=== PATIENT | female | born 1990 | race Hispanic/Latino ===

== ENCOUNTER 2020-05-20 07:44 | Emergency (ER) | payer MEDICARE, MEDICAID ==
[2020-05-20] MEDS ORDERED: Morphine 4 MG/ML VIAL ONE (08:11)
[2020-05-20 08:31] LABS: #Eosinphils 0.2 thou/uL (0.0-0.7); #Monocytes 1.2 thou/uL (0.11-0.59); #Neutrophils 6.7 thou/uL (1.40-6.50); %Basophils 0.4 % (0.0-1.0); %Eosinophils 1.8 % (0.0-10.0); %Lymphocytes 10.7 % (21.0-51.0); %Neutrophils 74.1 % (42.0-75.0); Hemoglobin 12.3 g/dL (12.0-16.0); Mean Corpuscular Hemoglobin 29.1 pg (27.0-31.0); Mean Corpuscular Volume 91.1 fL (78.0-98.0); Mean Platelet Volume 7.3 fL (7.4-10.4); Platelet Count 314 thou/uL (130-400); RBC Distribution Width 13.9 % (11.5-14.5); Red Blood Cell (RBC) Count 4.21 mill/uL (4.20-5.40)
[2020-05-20 08:55] LABS: ALT (SGPT) 21 U/L (8-55); AST (SGOT) 24 U/L (5-34); Albumin 3.4 g/dL (3.5-5.0); Alkaline Phosphatase 666 U/L (40-110); Anion Gap 18 mmol/L (10-20); BUN (Urea Nitrogen) 43 mg/dL (7.0-18.7); Bilirubin, Total 0.4 mg/dL (0.2-1.2); CK (CPK) 90 U/L (29-168); Calc. Creatinine Clearance 0 mL/min (70-130); Calcium 8.6 mg/dL (7.8-10.44); Carbon Dioxide 31 mmol/L (22-29); Chloride 84 mmol/L (98-107); Globulin 3.6 g/dL (2.4-3.5); Potassium 4.4 mmol/L (3.5-5.1); Sodium 129 mmol/L (136-145)
[2020-05-20 08:57] LABS: Glucose 703 mg/dL (70-105)
--- NOTE | 2020-06-08 13:15 | EKG ---
Test Reason : Blood Pressure : / mmHG Vent. Rate : 103 BPM Atrial Rate : 103 BPM P-R Int : 150 ms QRS Dur : 076 ms QT Int : 380 ms P-R-T Axes : 067 058 080 degrees QTc Int : 497 ms Sinus tachycardia Left atrial enlargement Nonspecific ST abnormality Abnormal ECG Confirmed by LENI RUBI ([id number]), loan expeditor RON WANG ([id number]) on 06/08/2020 1:14:32 PM Referred By: Confirmed By:LENI Loza
== END 2020-05-20 09:50 | disposition home or self-care (01) ==
LOC: ERS 07:44
DX: M79.604 Pain in right leg (principal); E11.65 Type 2 diabetes mellitus with hyperglycemia; F17.210 Nicotine dependence, cigarettes, uncomplicated; I12.0 Hypertensive chronic kidney disease with stage 5 chronic kidney disease or end stage renal disease; N18.6 End stage renal disease; E11.22 Type 2 diabetes mellitus with diabetic chronic kidney disease; Z79.899 Other long term (current) drug therapy
CPT/HCPCS: 36416; 80053; 82550; 85025; 93005; 96374; J2270

== ENCOUNTER 2020-08-29 05:48 | Inpatient (IN) | payer MEDICARE, MEDICAID ==
[2020-08-29 07:13] LABS: #Eosinphils 0.2 thou/uL (0.0-0.7); #Monocytes 0.5 thou/uL (0.11-0.59); #Neutrophils 12.2 thou/uL (1.40-6.50); %Basophils 0.3 % (0.0-1.0); %Eosinophils 1.5 % (0.0-10.0); %Lymphocytes 6.8 % (21.0-51.0); %Monocytes 3.4 % (0.0-10.0); %Neutrophils 88.1 % (42.0-75.0); Hemoglobin 10.7 g/dL (12.0-16.0); Mean Corpuscular HGB CONC 32.3 g/dL (32.0-36.0); Mean Corpuscular Hemoglobin 28.7 pg (27.0-31.0); Mean Corpuscular Volume 88.9 fL (78.0-98.0); Mean Platelet Volume 9.1 fL (7.4-10.4); Platelet Count 153 thou/uL (130-400); RBC Distribution Width 14.8 % (11.5-14.5); Red Blood Cell (RBC) Count 3.74 mill/uL (4.20-5.40); White Blood Cell (WBC) Count 13.9 thou/uL (4.8-10.8)
[2020-08-29 07:39] LABS: ALT (SGPT) 152 U/L (8-55); AST (SGOT) 120 U/L (5-34); Albumin 4.8 g/dL (3.5-5.0); Alkaline Phosphatase 671 U/L (40-110); Anion Gap 24 mmol/L (10-20); BUN (Urea Nitrogen) 73 mg/dL (7.0-18.7); Bilirubin, Total 0.7 mg/dL (0.2-1.2); Calc. Creatinine Clearance 0 mL/min (70-130); Calcium 9.7 mg/dL (7.8-10.44); Carbon Dioxide 25 mmol/L (22-29); Chloride 94 mmol/L (98-107); Globulin 3.9 g/dL (2.4-3.5); Glucose 251 mg/dL (70-105); Potassium 4.5 mmol/L (3.5-5.1); Protein, Total 8.7 g/dL (6.0-8.3); Sodium 138 mmol/L (136-145)
[2020-08-29 09:26] LABS: HBSAg Index 0.16 S/CO (0-0.99); Hep B Surf Ag Non-Reactive S/CO (NonReactive)
[2020-08-29] MEDS ORDERED: HumaLOG 300 UNITS/3 ML VIAL SC PRN (11:18)
[2020-08-29] MEDS ORDERED: Dextrose 50% Abboject 50 ML SYRINGE SLOW IVP PRN (11:18)
[2020-08-29] MEDS ORDERED: Dextrose 5% in Water 1,000 ML IV PRN (11:18)
[2020-08-29] MEDS ORDERED: Ondansetron PF 4 MG/2 ML Vial IVP PRN (11:18)
[2020-08-29] MEDS ORDERED: Ondansetron ODT 4 MG TAB PO PRN (11:18)
[2020-08-29] MEDS ORDERED: Lidocaine 4% Cream 5 GM TUBE w/ Tegaderm TOP SCH (12:00)
[2020-08-29] MEDS ORDERED: hydrALAZINE 20 MG/ML VIAL SLOW IVP PRN (12:12)
[2020-08-29] MEDS ORDERED: Loratadine 10 MG TAB PO PRN (12:54)
[2020-08-29 14:16] VITALS: BMI 24.5
[2020-08-29 14:54] LABS: ALT (SGPT) 170 U/L (8-55); AST (SGOT) 190 U/L (5-34); Albumin 3.5 g/dL (3.5-5.0); Alkaline Phosphatase 554 U/L (40-110); Bilirubin, Direct 0.4 mg/dL (0.1-0.3); Bilirubin, Total 0.7 mg/dL (0.2-1.2); Protein, Total 6.3 g/dL (6.0-8.3)
[2020-08-29 15:11] LABS: HIV (1/2) Antibody/Antigen Non-Reactive (NonReactive); HIV 1/2 INDEX 0.09 S/CO (<1.00); Syphilis Antibody Nonreactive (Nonreactive); Syphilis Antibody Index 0.03 S/CO (<1.00 Non-Reactive)
[2020-08-29] MEDS: Heparin 5,000 UNITS/ML VIAL SC SCH ×2 (15:45→20:25)
[2020-08-29] MEDS: Nicotine 14 MG PATCH TD SCH (15:45)
[2020-08-29] MEDS: Pregabalin 50 MG CAP PO SCH ×2 (15:45→18:48)
[2020-08-29 16:31] LABS: SARS-CoV-2 PCR by NAA Not Detected (NotDetected)
[2020-08-29] MEDS: ALPRAZolam 0.5 MG TAB PO SCH (18:48)
[2020-08-29] MEDS: Losartan 25 MG TAB PO SCH (18:48)
[2020-08-29] MEDS: Sevelamer Carbonate 800 MG TAB PO SCH (18:49)
[2020-08-29 20:11] LABS: BHCG - Serum Negative (NEGATIVE); Pregs Control Background? CLEAR/WHITE (CLR/WHITE); Pregs Control Bar Appear? YES (CONTROL BAR)
[2020-08-29] MEDS: Acetaminophen 500 MG TAB PO PRN (20:24)
[2020-08-29] MEDS: Famotidine 20 MG TAB PO SCH (20:24)
[2020-08-30] MEDS: Acetaminophen 500 MG TAB PO PRN (06:50)
[2020-08-30] MEDS: Heparin 5,000 UNITS/ML VIAL SC SCH ×3 (07:45→20:22)
[2020-08-30] MEDS: Pregabalin 50 MG CAP PO SCH (07:46)
[2020-08-30] MEDS: ALPRAZolam 0.5 MG TAB PO SCH ×2 (07:50→21:29)
[2020-08-30] MEDS: Famotidine 20 MG TAB PO SCH (07:50)
[2020-08-30] MEDS: Sevelamer Carbonate 800 MG TAB PO SCH ×3 (07:50→17:07)
[2020-08-30] MEDS: Losartan 25 MG TAB PO SCH ×2 (07:51→20:25)
[2020-08-30 08:42] LABS: #Basophils 0.1 thou/uL (0.0-0.2); #Eosinphils 0.1 thou/uL (0.0-0.7); #Monocytes 0.5 thou/uL (0.11-0.59); #Neutrophils 6.1 thou/uL (1.40-6.50); %Basophils 0.7 % (0.0-1.0); %Eosinophils 1.1 % (0.0-10.0); %Monocytes 6.2 % (0.0-10.0); Hemoglobin 9.8 g/dL (12.0-16.0); Mean Corpuscular HGB CONC 32.1 g/dL (32.0-36.0); Mean Corpuscular Hemoglobin 28.7 pg (27.0-31.0); Mean Corpuscular Volume 89.3 fL (78.0-98.0); Mean Platelet Volume 8.9 fL (7.4-10.4); Platelet Count 122 thou/uL (130-400); RBC Distribution Width 15.3 % (11.5-14.5); Red Blood Cell (RBC) Count 3.41 mill/uL (4.20-5.40); White Blood Cell (WBC) Count 7.7 thou/uL (4.8-10.8)
[2020-08-30] MEDS ORDERED: NIFEdipine XL 90 MG TAB PO SCH (09:00)
[2020-08-30] MEDS ORDERED: Carvedilol 25 MG TAB PO SCH ×2 (09:00→21:00)
[2020-08-30] MEDS ORDERED: Famotidine 20 MG TAB PO SCH (09:00)
[2020-08-30 09:17] LABS: ALT (SGPT) 123 U/L (8-55); AST (SGOT) 92 U/L (5-34); Albumin 3.2 g/dL (3.5-5.0); Alkaline Phosphatase 515 U/L (40-110); Anion Gap 19 mmol/L (10-20); BUN (Urea Nitrogen) 32 mg/dL (7.0-18.7); Bilirubin, Total 1.2 mg/dL (0.2-1.2); Calc. Creatinine Clearance 17 mL/min (70-130); Calcium 8.6 mg/dL (7.8-10.44); Carbon Dioxide 22 mmol/L (22-29); Chloride 98 mmol/L (98-107); Globulin 3.2 g/dL (2.4-3.5); Glucose 167 mg/dL (70-105); Protein, Total 6.4 g/dL (6.0-8.3); Sodium 134 mmol/L (136-145)
[2020-08-30 09:25] LABS: HBCM Index 0.12 S/CO (0-0.79); HBSAg Index 0.29 S/CO (0-0.99); Hep A IgM AB Non-Reactive (NonReactive); Hep B Surf Ag Non-Reactive S/CO (NonReactive); Hep C IgG Ab Non-Reactive (NonReactive); Hepatitis B Core IgM Abs Non-Reactive (NonReactive)
[2020-08-30] MEDS ORDERED: Iopamidol-370 76% 500 ML 1 ML ONE (09:38)
[2020-08-30] MEDS ORDERED: Acetaminophen/Codeine 30-300mg Tablet PO PRN (09:55)
[2020-08-30] MEDS ORDERED: Acetaminophen 325 MG TAB PO PRN (09:56)
[2020-08-30] MEDS: Cefepime 1 GM in Sodium Chloride 0.9% 100 ML IVPB SCH (12:43)
[2020-08-30] MEDS: Nicotine 14 MG PATCH TD SCH (12:43)
[2020-08-30] MEDS: HumaLOG 300 UNITS/3 ML VIAL SC PRN ×2 (12:47→17:23)
[2020-08-30] MEDS ORDERED: Pregabalin 50 MG CAP PO SCH (21:00)
[2020-08-31 05:10] LABS: #Eosinphils 0.2 thou/uL (0.0-0.7); #Lymphocytes 1.3 thou/uL (1.20-3.40); #Monocytes 0.8 thou/uL (0.11-0.59); #Neutrophils 5.5 thou/uL (1.40-6.50); %Basophils 0.4 % (0.0-1.0); %Eosinophils 2.6 % (0.0-10.0); %Lymphocytes 16.2 % (21.0-51.0); %Monocytes 10.2 % (0.0-10.0); %Neutrophils 70.6 % (42.0-75.0); Hemoglobin 9.3 g/dL (12.0-16.0); Mean Corpuscular HGB CONC 31.7 g/dL (32.0-36.0); Mean Corpuscular Hemoglobin 28.5 pg (27.0-31.0); Mean Corpuscular Volume 89.8 fL (78.0-98.0); Mean Platelet Volume 9.1 fL (7.4-10.4); Platelet Count 147 thou/uL (130-400); RBC Distribution Width 15.9 % (11.5-14.5); Red Blood Cell (RBC) Count 3.26 mill/uL (4.20-5.40); White Blood Cell (WBC) Count 7.8 thou/uL (4.8-10.8)
[2020-08-31 05:42] LABS: ALT (SGPT) 83 U/L (8-55); AST (SGOT) 38 U/L (5-34); Albumin 3.3 g/dL (3.5-5.0); Alkaline Phosphatase 459 U/L (40-110); Anion Gap 18 mmol/L (10-20); BUN (Urea Nitrogen) 53 mg/dL (7.0-18.7); Bilirubin, Total 0.9 mg/dL (0.2-1.2); Calc. Creatinine Clearance 12 mL/min (70-130); Carbon Dioxide 26 mmol/L (22-29); Chloride 94 mmol/L (98-107); Glucose 164 mg/dL (70-105); Protein, Total 6.3 g/dL (6.0-8.3); Sodium 133 mmol/L (136-145)
[2020-08-31 07:55] VITALS: TEMP 98.4
[2020-08-31] MEDS ORDERED: Carvedilol 25 MG TAB PO SCH (08:00)
[2020-08-31] MEDS ORDERED: NIFEdipine XL 60 MG TAB PO SCH (09:00)
[2020-08-31] MEDS ORDERED: Famotidine 20 MG TAB PO SCH (09:00)
[2020-08-31] MEDS: Losartan 25 MG TAB PO SCH (09:56)
[2020-08-31 09:57] VITALS: BP 198/94
[2020-08-31] MEDS: ALPRAZolam 0.5 MG TAB PO SCH (11:28)
[2020-08-31] MEDS: Sevelamer Carbonate 800 MG TAB PO SCH ×2 (14:28→14:29)
[2020-08-31] MEDS: Cefepime 1 GM in Sodium Chloride 0.9% 100 ML IVPB SCH (14:29)
[2020-08-31] MEDS: Nicotine 14 MG PATCH TD SCH (14:29)
[2020-08-31] MEDS: Heparin 5,000 UNITS/ML VIAL SC SCH (14:29)
== END 2020-08-31 16:24 | disposition home or self-care (01) | DRG 193 ==
LOC: ERS 05:48 → 2SW 10:42 → OBSVTOIN 08-30 11:17
PROVIDERS: ADMIT Student in an Organized Health Care Education/Training Program; ATTEND Student in an Organized Health Care Education/Training Program
PROC: 5A1D70Z Performance of Urinary Filtration, Intermittent, Less than 6 Hours Per Day (ICD-10-PCS; principal; 2020-08-30)
DX: J18.9 Pneumonia, unspecified organism (principal); J96.01 Acute respiratory failure with hypoxia; N18.6 End stage renal disease; I13.2 Hypertensive heart and chronic kidney disease with heart failure and with stage 5 chronic kidney disease, or end stage renal disease; I50.32 Chronic diastolic (congestive) heart failure; Z20.822 Contact with and (suspected) exposure to COVID-19; E87.70 Fluid overload, unspecified; E10.22 Type 1 diabetes mellitus with diabetic chronic kidney disease; D63.1 Anemia in chronic kidney disease; F17.210 Nicotine dependence, cigarettes, uncomplicated; F12.10 Cannabis abuse, uncomplicated; K76.1 Chronic passive congestion of liver; E10.40 Type 1 diabetes mellitus with diabetic neuropathy, unspecified; F41.1 Generalized anxiety disorder; B18.2 Chronic viral hepatitis C; Z99.2 Dependence on renal dialysis; Z88.2 Allergy status to sulfonamides; Z88.8 Allergy status to other drugs, medicaments and biological substances; Z79.899 Other long term (current) drug therapy; Z90.49 Acquired absence of other specified parts of digestive tract; Z98.890 Other specified postprocedural states; Z91.19 Patient's noncompliance with other medical treatment and regimen
CPT/HCPCS: 36415; 36416; 71045; 71275; 80053; 80074; 83880; 84145; 84484; 84703; 85025; 86780; 87040; 87340; 87389; 87635; 90935; 93005; 93306; 96372; 96374; G0257; G0378; J0360; J0692; J1644; J1815; J3490; Q9967; U0003; U0005

== ENCOUNTER 2021-08-22 03:19 | Inpatient (IN) | payer MEDICARE, MEDICAID ==
[2021-08-22] MEDS ORDERED: Ondansetron PF 4 MG/2 ML Vial ONE (03:37)
[2021-08-22 03:42] LABS: Actual Bicarbonate (HCO3v) 22 mEq/L (22-28); Analyzer IN Cardio ER; Calcium, Ionized (venous) 1.01 mmol/L (1.16-1.32); Chloride (VBG) 86 mmol/L (98-106); Hemoglobin (Hb) 12.9 g/dL (11.7-15.5); Potassium (VBG) 5.17 mmol/L (3.70-5.30); Sodium 122.4 mmol/L (133-146); pH (venous) 7.41 (7.32-7.43)
[2021-08-22 04:06] LABS: Magnesium 2.9 mg/dL (1.6-2.6)
[2021-08-22] MEDS ORDERED: hydrALAZINE 20 MG/ML VIAL ONE (04:09)
[2021-08-22 04:10] LABS: ALT (SGPT) 101 U/L (8-55); AST (SGOT) 99 U/L (5-34); Albumin 4.4 g/dL (3.5-5.0); Alkaline Phosphatase 585 U/L (40-110); Anion Gap 24 mmol/L (10-20); BUN (Urea Nitrogen) 75 mg/dL (7.0-18.7); Bilirubin, Total 0.9 mg/dL (0.2-1.2); Calc. Creatinine Clearance 0 mL/min (70-130); Calcium 8.8 mg/dL (7.8-10.44); Carbon Dioxide 22 mmol/L (22-29); Chloride 84 mmol/L (98-107); Globulin 2.6 g/dL (2.4-3.5); Phosphorus 4.5 mg/dL (2.3-4.7); Potassium 5.1 mmol/L (3.5-5.1); Sodium 125 mmol/L (136-145)
[2021-08-22 04:12] LABS: Hemoglobin 12.6 g/dL (12.0-16.0); Mean Corpuscular HGB CONC 33.3 g/dL (32.0-36.0); Mean Corpuscular Hemoglobin 30.2 pg (27.0-31.0); Mean Corpuscular Volume 90.6 fL (78.0-98.0); RBC Distribution Width 14.1 % (11.5-14.5); Red Blood Cell (RBC) Count 4.16 mill/uL (4.20-5.40); White Blood Cell (WBC) Count 6.6 thou/uL (4.8-10.8)
[2021-08-22 04:19] LABS: Glucose 617 mg/dL (70-105)
[2021-08-22] MEDS ORDERED: Insulin Regular 300 UNITS/3 ML VIAL ONE (04:31)
[2021-08-22] MEDS ORDERED: Morphine 4 MG/ML VIAL ONE (04:31)
[2021-08-22 04:34] LABS: #Basophils 0.1 thou/uL (0.0-0.2); #Eosinphils 0.1 thou/uL (0.0-0.7); #Lymphocytes 0.6 thou/uL (1.20-3.40); #Monocytes 0.4 thou/uL (0.11-0.59); #Neutrophils 5.4 thou/uL (1.40-6.50); %Basophils 0.9 % (0.0-1.0); %Eosinophils 1.6 % (0.0-10.0); %Lymphocytes 9.7 % (21.0-51.0); %Monocytes 6.2 % (0.0-10.0); %Neutrophils 81.6 % (42.0-75.0); Mean Platelet Volume 9.1 fL (7.4-10.4); Platelet Count 110 thou/uL (130-400); Platelet Morphology Comment Appears Decreased
[2021-08-22] MEDS ORDERED: Nitroglycerin 2% Ointment 1 INCH/1 GM Packet ONE (04:41)
[2021-08-22 06:35] LABS: Troponin I 0.012 ng/mL (< 0.028)
[2021-08-22 08:25] LABS: Anion Gap 21 mmol/L (10-20); BUN (Urea Nitrogen) 75 mg/dL (7.0-18.7); Calc. Creatinine Clearance 0 mL/min (70-130); Calcium 8.6 mg/dL (7.8-10.44); Carbon Dioxide 23 mmol/L (22-29); Chloride 88 mmol/L (98-107); Glucose 365 mg/dL (70-105); Potassium 4.7 mmol/L (3.5-5.1); Sodium 127 mmol/L (136-145)
[2021-08-22 09:33] LABS: BHCG - Serum Negative (NEGATIVE); Pregs Control Background? CLEAR/WHITE (CLR/WHITE); Pregs Control Bar Appear? YES (CONTROL BAR)
[2021-08-22 09:46] LABS: Hemoglobin A1c 11.7 % (4.0-6.0)
[2021-08-22 09:51] LABS: Troponin I Less than 0.010 ng/mL (< 0.028)
[2021-08-22 10:12] LABS: HBCM Index 0.16 S/CO (0-0.79); HBSAg Index 0.32 S/CO (0-0.99); Hep A IgM AB Non-Reactive (NonReactive); Hep B Surf Ag Non-Reactive S/CO (NonReactive); Hep C IgG Ab Non-Reactive (NonReactive); Hep C Index 0.11 S/CO (0-0.79); Hepatitis B Core IgM Abs Non-Reactive (NonReactive)
[2021-08-22] MEDS ORDERED: Dextrose 5% in Water 1,000 ML IV PRN (10:22)
[2021-08-22] MEDS ORDERED: Dextrose 50% Abboject 50 ML SYRINGE SLOW IVP PRN (10:22)
[2021-08-22] MEDS ORDERED: Insulin Glargine 30 UNITS/0.3 ML VIAL SC SCH (10:30)
[2021-08-22 15:13] LABS: Anion Gap 18 mmol/L (10-20); BUN (Urea Nitrogen) 54 mg/dL (7.0-18.7); Calc. Creatinine Clearance 13 mL/min (70-130); Calcium 8.5 mg/dL (7.8-10.44); Carbon Dioxide 25 mmol/L (22-29); Chloride 91 mmol/L (98-107); Glucose 257 mg/dL (70-105); Potassium 3.8 mmol/L (3.5-5.1); Sodium 130 mmol/L (136-145)
[2021-08-22] MEDS ORDERED: hydrALAZINE 25 MG TAB PO PRN (16:00)
[2021-08-22] MEDS ORDERED: diphenhydrAMINE 25 MG CAP PO SCH (16:15)
[2021-08-22] MEDS ORDERED: cloNIDine 0.1 MG TAB PO SCH (17:15)
[2021-08-22] MEDS ORDERED: niCARdipine 25 MG in Sodium Chloride 0.9% 250 ML 250 ML IVPB SCH (19:00)
[2021-08-22] MEDS ORDERED: hydrALAZINE 25 MG TAB PO SCH (19:30)
[2021-08-22] MEDS: Acetaminophen/Codeine 30-300mg Tablet PO PRN (20:53)
[2021-08-22] MEDS ORDERED: NIFEdipine XL 30 MG TAB PO SCH (21:00)
[2021-08-22] MEDS: Ondansetron ODT 4 MG TAB PO PRN (23:23)
[2021-08-23] MEDS: HumaLOG 300 UNITS/3 ML VIAL SC PRN ×4 (00:44→21:08)
[2021-08-23] MEDS: Famotidine 20 MG TAB PO SCH (08:04)
[2021-08-23] MEDS: Carvedilol 25 MG TAB PO SCH ×2 (08:05→21:06)
[2021-08-23] MEDS: hydrALAZINE 25 MG TAB PO SCH ×3 (08:05→21:05)
[2021-08-23] MEDS: ALPRAZolam 1 MG TAB PO SCH ×3 (08:05→21:06)
[2021-08-23] MEDS: hydrOXYzine Pamoate 25 mg Capsule PO SCH ×3 (08:36→21:05)
[2021-08-23] MEDS ORDERED: Losartan 25 MG TAB PO SCH (09:00)
[2021-08-23] MEDS ORDERED: hydrALAZINE 25 MG TAB PO SCH (09:00)
[2021-08-23] MEDS ORDERED: NIFEdipine XL 30 MG TAB PO SCH ×2 (09:00→10:15)
[2021-08-23] MEDS ORDERED: NIFEdipine XL 60 MG TAB PO SCH (09:00)
[2021-08-23] MEDS ORDERED: cloNIDine 0.1mg/24 Hour PATCH TD SCH (09:15)
[2021-08-23] MEDS ORDERED: LIDOCAINE 4% Topical Sol 4 ML SOLN.PK.G. TP PRN (09:49)
[2021-08-23] MEDS: Acetaminophen/Codeine 30-300mg Tablet PO PRN ×2 (09:58→21:50)
[2021-08-23] MEDS: Ondansetron ODT 4 MG TAB PO PRN (09:58)
[2021-08-23] MEDS: Metoclopramide 10 MG/10 ML UDCUP PO SCH ×2 (10:54→18:30)
[2021-08-23] MEDS ORDERED: Lidocaine 4% Topical Sol 50 ML BOT TOP PRN (11:00)
[2021-08-23 11:18] LABS: #Eosinphils 0.1 thou/uL (0.0-0.7); #Monocytes 0.5 thou/uL (0.11-0.59); #Neutrophils 4.2 thou/uL (1.40-6.50); %Basophils 0.5 % (0.0-1.0); %Eosinophils 2.2 % (0.0-10.0); %Lymphocytes 16.9 % (21.0-51.0); %Monocytes 7.9 % (0.0-10.0); %Neutrophils 72.5 % (42.0-75.0); Hemoglobin 10.9 g/dL (12.0-16.0); Mean Corpuscular Hemoglobin 29.1 pg (27.0-31.0); Mean Corpuscular Volume 90.7 fL (78.0-98.0); Mean Platelet Volume 8.7 fL (7.4-10.4); Platelet Count 120 thou/uL (130-400); RBC Distribution Width 14.2 % (11.5-14.5); Red Blood Cell (RBC) Count 3.74 mill/uL (4.20-5.40); White Blood Cell (WBC) Count 5.8 thou/uL (4.8-10.8)
[2021-08-23 11:38] LABS: ALT (SGPT) 66 U/L (8-55); AST (SGOT) 51 U/L (5-34); Albumin 3.6 g/dL (3.5-5.0); Alkaline Phosphatase 420 U/L (40-110); Anion Gap 15 mmol/L (10-20); BUN (Urea Nitrogen) 41 mg/dL (7.0-18.7); Bilirubin, Total 0.7 mg/dL (0.2-1.2); Calc. Creatinine Clearance 13 mL/min (70-130); Calcium 8.4 mg/dL (7.8-10.44); Carbon Dioxide 27 mmol/L (22-29); Chloride 95 mmol/L (98-107); Globulin 2.3 g/dL (2.4-3.5); Glucose 210 mg/dL (70-105); Potassium 4.2 mmol/L (3.5-5.1); Protein, Total 5.9 g/dL (6.0-8.3); Sodium 133 mmol/L (136-145)
[2021-08-23] MEDS: diphenhydrAMINE 50 MG/ML VIAL IVP PRN (13:14)
[2021-08-23 13:15] VITALS: BMI 23.8
[2021-08-23] MEDS ORDERED: hydrALAZINE 20 MG/ML VIAL SLOW IVP PRN (13:40)
[2021-08-23] MEDS: Labetalol HCl 100 MG/20 ML VIAL SLOW IVP PRN (14:00)
[2021-08-23] MEDS: Losartan 25 MG TAB PO SCH (21:06)
[2021-08-23] MEDS: Insulin Glargine 30 UNITS/0.3 ML VIAL SC SCH (21:07)
[2021-08-23] MEDS ORDERED: diphenhydrAMINE 50 MG/ML VIAL IVP SCH (21:45)
[2021-08-24] MEDS: Labetalol HCl 100 MG/20 ML VIAL SLOW IVP PRN ×2 (02:23→06:23)
[2021-08-24 04:11] LABS: #Eosinphils 0.1 thou/uL (0.0-0.7); #Monocytes 0.6 thou/uL (0.11-0.59); #Neutrophils 4.6 thou/uL (1.40-6.50); %Basophils 0.6 % (0.0-1.0); %Eosinophils 1.6 % (0.0-10.0); %Lymphocytes 15.4 % (21.0-51.0); %Monocytes 9.7 % (0.0-10.0); %Neutrophils 72.8 % (42.0-75.0); Hemoglobin 11.1 g/dL (12.0-16.0); Mean Corpuscular HGB CONC 33.3 g/dL (32.0-36.0); Mean Corpuscular Hemoglobin 30.5 pg (27.0-31.0); Mean Corpuscular Volume 91.7 fL (78.0-98.0); Mean Platelet Volume 8.4 fL (7.4-10.4); Platelet Count 135 thou/uL (130-400); Red Blood Cell (RBC) Count 3.64 mill/uL (4.20-5.40); White Blood Cell (WBC) Count 6.3 thou/uL (4.8-10.8)
[2021-08-24] MEDS ORDERED: Acetaminophen/Codeine 30-300mg Tablet PO SCH (04:30)
[2021-08-24 04:35] LABS: ALT (SGPT) 63 U/L (8-55); AST (SGOT) 54 U/L (5-34); Albumin 3.7 g/dL (3.5-5.0); Alkaline Phosphatase 414 U/L (40-110); Anion Gap 15 mmol/L (10-20); BUN (Urea Nitrogen) 25 mg/dL (7.0-18.7); Bilirubin, Total 0.7 mg/dL (0.2-1.2); Calc. Creatinine Clearance 17 mL/min (70-130); Calcium 8.6 mg/dL (7.8-10.44); Carbon Dioxide 29 mmol/L (22-29); Chloride 96 mmol/L (98-107); Globulin 2.4 g/dL (2.4-3.5); Glucose 146 mg/dL (70-105); Protein, Total 6.1 g/dL (6.0-8.3); Sodium 136 mmol/L (136-145)
[2021-08-24] MEDS: Ondansetron ODT 4 MG TAB PO PRN ×2 (04:51→20:22)
[2021-08-24] MEDS ORDERED: Lidocaine 2% Viscous Solution 10 ML, Aluminum & Magnesium Hydroxide 30 ML SSW SCH (06:00)
[2021-08-24] MEDS ORDERED: NIFEdipine XL 60 MG TAB PO SCH ×2 (09:00→12:51)
[2021-08-24] MEDS: hydrALAZINE 25 MG TAB PO SCH ×3 (09:57→22:00)
[2021-08-24] MEDS: Carvedilol 25 MG TAB PO SCH ×2 (09:57→22:32)
[2021-08-24] MEDS: hydrOXYzine Pamoate 25 mg Capsule PO SCH ×3 (09:58→20:19)
[2021-08-24] MEDS: Metoclopramide 10 MG/10 ML UDCUP PO SCH ×3 (09:58→17:48)
[2021-08-24] MEDS: Famotidine 20 MG TAB PO SCH (09:58)
[2021-08-24] MEDS: ALPRAZolam 1 MG TAB PO SCH ×3 (09:58→20:20)
[2021-08-24 12:20] LABS: SARS-CoV-2 PCR by NAA Not Detected (NotDetected)
[2021-08-24] MEDS ORDERED: NIFEdipine XL 30 MG TAB PO SCH (13:30)
[2021-08-24] MEDS: HumaLOG 300 UNITS/3 ML VIAL SC PRN ×2 (14:29→17:55)
[2021-08-24] MEDS: Insulin Glargine 30 UNITS/0.3 ML VIAL SC SCH (20:20)
[2021-08-24] MEDS: Acetaminophen/Codeine 30-300mg Tablet PO PRN (20:24)
[2021-08-24] MEDS: Losartan 25 MG TAB PO SCH (22:32)
[2021-08-25] MEDS: Labetalol HCl 100 MG/20 ML VIAL SLOW IVP PRN (02:06)
[2021-08-25 02:07] VITALS: BP 186/107
[2021-08-25 03:52] LABS: #Basophils 0.1 thou/uL (0.0-0.2); #Eosinphils 0.1 thou/uL (0.0-0.7); #Lymphocytes 1.1 thou/uL (1.20-3.40); #Monocytes 0.6 thou/uL (0.11-0.59); #Neutrophils 3.3 thou/uL (1.40-6.50); %Basophils 1.2 % (0.0-1.0); %Eosinophils 2.3 % (0.0-10.0); %Lymphocytes 22.1 % (21.0-51.0); %Monocytes 10.9 % (0.0-10.0); %Neutrophils 63.5 % (42.0-75.0); Hemoglobin 10.7 g/dL (12.0-16.0); Mean Corpuscular HGB CONC 32.1 g/dL (32.0-36.0); Mean Corpuscular Hemoglobin 29.6 pg (27.0-31.0); Mean Platelet Volume 8.1 fL (7.4-10.4); Platelet Count 141 thou/uL (130-400); RBC Distribution Width 13.7 % (11.5-14.5); Red Blood Cell (RBC) Count 3.64 mill/uL (4.20-5.40); White Blood Cell (WBC) Count 5.2 thou/uL (4.8-10.8)
[2021-08-25 04:04] LABS: ALT (SGPT) 136 U/L (8-55); AST (SGOT) 175 U/L (5-34); Albumin 3.5 g/dL (3.5-5.0); Alkaline Phosphatase 399 U/L (40-110); Anion Gap 19 mmol/L (10-20); BUN (Urea Nitrogen) 35 mg/dL (7.0-18.7); Bilirubin, Total 0.7 mg/dL (0.2-1.2); Calc. Creatinine Clearance 13 mL/min (70-130); Calcium 8.5 mg/dL (7.8-10.44); Carbon Dioxide 25 mmol/L (22-29); Chloride 92 mmol/L (98-107); Globulin 2.4 g/dL (2.4-3.5); Glucose 91 mg/dL (70-105); Potassium 4.3 mmol/L (3.5-5.1); Protein, Total 5.9 g/dL (6.0-8.3); Sodium 132 mmol/L (136-145)
[2021-08-25] MEDS ORDERED: Mag-Al 1200 mg/1200 mg/30 ML UDCUP PO SCH (05:45)
[2021-08-25] MEDS: ALPRAZolam 1 MG TAB PO SCH ×2 (05:49→16:04)
[2021-08-25] MEDS ORDERED: NIFEdipine XL 90 MG TAB PO SCH (09:00)
[2021-08-25] MEDS ORDERED: Doxazosin 2 MG TAB PO SCH (09:00)
[2021-08-25] MEDS: Carvedilol 25 MG TAB PO SCH (10:45)
[2021-08-25] MEDS: hydrOXYzine Pamoate 25 mg Capsule PO SCH ×2 (10:45→16:04)
[2021-08-25] MEDS: hydrALAZINE 25 MG TAB PO SCH ×2 (10:45→16:04)
[2021-08-25] MEDS: Famotidine 20 MG TAB PO SCH (10:46)
[2021-08-25] MEDS: Metoclopramide 10 MG/10 ML UDCUP PO SCH ×3 (10:46→16:05)
[2021-08-25] MEDS: Acetaminophen/Codeine 30-300mg Tablet PO PRN (10:51)
[2021-08-25] MEDS: diphenhydrAMINE 50 MG/ML VIAL IVP PRN (14:20)
[2021-08-25 16:05] VITALS: TEMP 97.4
== END 2021-08-25 18:45 | disposition home or self-care (01) | DRG 637 ==
LOC: ERS 03:19 → ERHOLD 05:13 → OBSVTOIN 11:16 → 2SW 11:29 → 2NO 12:59 → CCU 19:43 → IMCU/EMU 08-23 10:19
PROVIDERS: ADMIT Student in an Organized Health Care Education/Training Program; ATTEND Internal Medicine
DX: E10.65 Type 1 diabetes mellitus with hyperglycemia (principal); N18.6 End stage renal disease; E87.1 Hypo-osmolality and hyponatremia; E87.0 Hyperosmolality and hypernatremia; I12.0 Hypertensive chronic kidney disease with stage 5 chronic kidney disease or end stage renal disease; E10.22 Type 1 diabetes mellitus with diabetic chronic kidney disease; F41.9 Anxiety disorder, unspecified; K59.09 Other constipation; D69.6 Thrombocytopenia, unspecified; I16.0 Hypertensive urgency; D63.1 Anemia in chronic kidney disease; Z20.822 Contact with and (suspected) exposure to COVID-19; E10.40 Type 1 diabetes mellitus with diabetic neuropathy, unspecified; F14.10 Cocaine abuse, uncomplicated; B19.20 Unspecified viral hepatitis C without hepatic coma; Z88.8 Allergy status to other drugs, medicaments and biological substances; Z88.2 Allergy status to sulfonamides; Z99.2 Dependence on renal dialysis; Z79.899 Other long term (current) drug therapy; Z90.49 Acquired absence of other specified parts of digestive tract; Z88.1 Allergy status to other antibiotic agents
CPT/HCPCS: 36415; 36416; 76700; 80053; 80074; 82010; 82805; 83036; 83605; 83690; 83735; 84100; 84443; 84484; 84703; 85025; 93005; 96374; 96375; J0360; J1200; J1815; J2270; J2405; J7050; Q0162; Q0177; U0003; U0005

== ENCOUNTER 2024-01-12 19:44 | Inpatient (IN) | payer MEDICARE, MEDICAID ==
[2024-01-12] MEDS ORDERED: diphenhydrAMINE 50 MG/ML VIAL ONE (20:50)
[2024-01-12] MEDS ORDERED: Morphine 4 MG/ML VIAL ONE (20:50)
[2024-01-12 21:15] LABS: #Basophils 0.04 10x3/uL (0.0-0.2); %Basophils 0.5 % (0.0-1.0); %Eosinophils 2.5 % (0.0-10.0); %Lymphocytes 14.1 % (21.0-51.0); %Monocytes 11.6 % (0.0-10.0); %Neutrophils 70.9 % (42.0-75.0); Hemoglobin 10.6 g/dL (12.0-16.0); Mean Corpuscular HGB CONC 31.2 g/dL (32.0-36.0); Mean Corpuscular Hemoglobin 31.2 pg (27.0-31.0); Mean Platelet Volume 10.9 fL (7.4-10.4); Platelet Count 272 10x3/uL (130-400); RBC Distribution Width 15.2 % (11.5-14.5)
[2024-01-12 21:38] LABS: Troponin I 0.023 ng/mL (< 0.028)
[2024-01-12 23:11] LABS: ALT (SGPT) 275 U/L (8-55); Albumin 2.8 g/dL (3.5-5.0); Alkaline Phosphatase 1011 U/L (40-110); Anion Gap 26 mmol/L (10-20); BUN (Urea Nitrogen) 74 mg/dL (7.0-18.7); Bilirubin, Total 0.2 mg/dL (0.2-1.2); Calc. Creatinine Clearance 0 mL/min (70-130); Calcium 7.6 mg/dL (7.8-10.44); Carbon Dioxide 19 mmol/L (22-29); Chloride 98 mmol/L (98-107); Estimated GFR 7; Globulin 4.2 g/dL (2.4-3.5); Glucose 234 mg/dL (70-105); Lipase 29 U/L (8-78); Sodium 137 mmol/L (136-145)
[2024-01-12 23:14] LABS: AST (SGOT) 160 U/L (5-34); Potassium 6.1 mmol/L (3.5-5.1)
[2024-01-12 23:49] LABS: BHCG - Serum Negative (NEGATIVE); Pregs Control Background? CLEAR/WHITE (CLR/WHITE); Pregs Control Bar Appear? YES (CONTROL BAR)
[2024-01-13 00:02] LABS: Influenza A by NAA Not Detected (NotDetected); Influenza B by NAA Not Detected (NotDetected); SARS-CoV-2 NAA Rapid Test Not Detected (NotDetected)
[2024-01-13 00:06] LABS: ALT (SGPT) 267 U/L (8-55); AST (SGOT) 123 U/L (5-34); Albumin 2.9 g/dL (3.5-5.0); Alkaline Phosphatase 1058 U/L (40-110); Anion Gap 27 mmol/L (10-20); BUN (Urea Nitrogen) 75 mg/dL (7.0-18.7); Bilirubin, Total 0.3 mg/dL (0.2-1.2); Calc. Creatinine Clearance 0 mL/min (70-130); Calcium 7.8 mg/dL (7.8-10.44); Carbon Dioxide 21 mmol/L (22-29); Chloride 97 mmol/L (98-107); Estimated GFR 7; Globulin 3.8 g/dL (2.4-3.5); Glucose 267 mg/dL (70-105); Potassium 5.1 mmol/L (3.5-5.1); Protein, Total 6.7 g/dL (6.0-8.3); Sodium 140 mmol/L (136-145)
[2024-01-13] MEDS ORDERED: Morphine 4 MG/ML VIAL ONE ×2 (00:54→13:05)
[2024-01-13 06:57] VITALS: BMI 19.4
[2024-01-13] MEDS ORDERED: Dextrose 50% Abboject 50 ML SYRINGE SLOW IVP PRN (07:50)
[2024-01-13] MEDS ORDERED: Ondansetron PF 4 MG/2 ML Vial IVP PRN (07:50)
[2024-01-13] MEDS ORDERED: Dextrose 5% in Water 1,000 ML IV PRN (07:50)
[2024-01-13] MEDS ORDERED: Acetaminophen 325 MG TAB PO PRN (07:50)
[2024-01-13] MEDS ORDERED: Glucagon 1 MG/ML KIT IM PRN (07:50)
[2024-01-13] MEDS ORDERED: Pantoprazole DR 40 MG TAB ONE (09:49)
[2024-01-13] MEDS ORDERED: Heparin 5,000 UNITS/ML VIAL ONE (09:49)
[2024-01-13] MEDS ORDERED: Insulin Regular, Human 100 UNIT/ML 10 ML VIAL ONE (10:24)
[2024-01-13] MEDS: Pantoprazole DR 40 MG TAB PO SCH (10:36)
[2024-01-13] MEDS: Heparin 5,000 UNITS/ML VIAL SC SCH (10:44)
[2024-01-13] MEDS: Insulin Regular, Human 100 UNIT/ML 10 ML VIAL SC PRN (10:48)
[2024-01-13] MEDS ORDERED: diphenhydrAMINE 50 MG CAP PO PRN (11:39)
[2024-01-13] MEDS ORDERED: Lidocaine 2% Jelly 5 ML TUBE TOP PRN (12:54)
[2024-01-13] MEDS ORDERED: diphenhydrAMINE 25 MG CAP ONE (14:00)
[2024-01-13] MEDS: Lidocaine 2% 6 ML (Jelly) SYR TOP PRN (14:06)
[2024-01-13] MEDS: Morphine 4 MG/ML VIAL SLOW IVP PRN (14:07)
[2024-01-13] MEDS ORDERED: hydrALAZINE 20 MG/ML VIAL SLOW IVP PRN (16:37)
[2024-01-13] MEDS: ALPRAZolam 1 MG TAB PO SCH (21:03)
[2024-01-13] MEDS: QUEtiapine 100 MG TAB PO SCH (21:03)
[2024-01-13] MEDS: Topiramate 100 MG TAB PO SCH (21:05)
[2024-01-13] MEDS: NIFEdipine XL 60 MG ER.TAB PO SCH (21:05)
[2024-01-13] MEDS: Carvedilol 25 MG TAB PO SCH (21:06)
[2024-01-13] MEDS: hydrALAZINE 25 MG TAB PO SCH (21:07)
[2024-01-13] MEDS: levETIRAcetam 500 MG TAB PO SCH (21:09)
[2024-01-13] MEDS: Sevelamer Carbonate 800 MG TAB PO SCH (22:33)
[2024-01-14] MEDS ORDERED: Ondansetron PF 4 MG/2 ML Vial IVP PRN (00:08)
[2024-01-14 00:25] LABS: Actual Bicarbonate (HCO3a) 21.4 mEq/L (22-28); Base Excess (BEa) -8.6 mEq/L (-2.0 to +3.0); Carboxyhemoglobin (COHb) 2.2 gm% (0.0-3.0); Hematocrit-ABG 36 % (36.0-47.0); Hemoglobin (Hb) 12.3 g/dL (12.0-16.0); O2 Tension (PaO2), arterial 60.5 mmHg (80.0-100.0)
[2024-01-14 00:31] LABS: CO2 Tension 66.6 mmHg (35.0-45.0); pH, Arterial 7.124 (7.35-7.45)
[2024-01-14 00:33] LABS: Puncture Site Right Radial artery
[2024-01-14 00:42] LABS: #Basophils 0.06 10x3/uL (0.0-0.2); %Basophils 0.7 % (0.0-1.0); %Eosinophils 2.2 % (0.0-10.0); %Lymphocytes 8.3 % (21.0-51.0); %Monocytes 10.3 % (0.0-10.0); %Neutrophils 77.8 % (42.0-75.0); Hematocrit 35.9 % (36.0-47.0); Hemoglobin 10.8 g/dL (12.0-16.0); Mean Corpuscular HGB CONC 30.1 g/dL (32.0-36.0); Mean Corpuscular Hemoglobin 30.2 pg (27.0-31.0); Mean Corpuscular Volume 100.3 fL (78.0-98.0); Platelet Count 239 10x3/uL (130-400); RBC Distribution Width 14.7 % (11.5-14.5); Red Blood Cell (RBC) Count 3.58 mill/uL (4.20-5.40)
[2024-01-14 00:45] LABS: Actual Bicarbonate (HCO3a) 27.8 mEq/L (22-28); Base Excess (BEa) 1.4 mEq/L (-2.0 to +3.0); CO2 Tension 51.9 mmHg (35.0-45.0); Calcium, Ionized (arterial) 1.03 mmol/L (1.12-1.30); Carboxyhemoglobin (COHb) 1.4 gm% (0.0-3.0); Hematocrit-ABG 32 % (36.0-47.0); Potassium - ABG Lab 4.16 mmol/L (3.70-5.30); pH, Arterial 7.346 (7.35-7.45)
[2024-01-14 00:57] LABS: Anion Gap 24 mmol/L (10-20); BUN (Urea Nitrogen) 37 mg/dL (7.0-18.7); Calc. Creatinine Clearance 16 mL/min (70-130); Carbon Dioxide 22 mmol/L (22-29); Chloride 94 mmol/L (98-107); Potassium 4.2 mmol/L (3.5-5.1); Sodium 136 mmol/L (136-145)
[2024-01-14 00:58] LABS: ALT (SGPT) 193 U/L (8-55); AST (SGOT) 65 U/L (5-34); Alkaline Phosphatase 1138 U/L (40-110); Bilirubin, Total 0.4 mg/dL (0.2-1.2); Calcium 7.9 mg/dL (7.8-10.44); Estimated GFR 14; Globulin 3.7 g/dL (2.4-3.5); Glucose 366 mg/dL (70-105); Protein, Total 6.7 g/dL (6.0-8.3)
[2024-01-14 01:03] LABS: Troponin I 0.012 ng/mL (< 0.028)
[2024-01-14 01:32] LABS: ALV-art Gradient 170.325 mmHg (0-20); Puncture Site Right Brachial art
[2024-01-14 04:01] LABS: #Basophils 0.03 10x3/uL (0.0-0.2); %Basophils 0.4 % (0.0-1.0); %Eosinophils 2.1 % (0.0-10.0); %Lymphocytes 10.8 % (21.0-51.0); %Monocytes 11.6 % (0.0-10.0); %Neutrophils 74.7 % (42.0-75.0); Hematocrit 32.4 % (36.0-47.0); Hemoglobin 9.9 g/dL (12.0-16.0); Mean Corpuscular HGB CONC 30.6 g/dL (32.0-36.0); Mean Corpuscular Hemoglobin 30.5 pg (27.0-31.0); Mean Corpuscular Volume 99.7 fL (78.0-98.0); Mean Platelet Volume 9.8 fL (7.4-10.4); Platelet Count 208 10x3/uL (130-400); RBC Distribution Width 14.6 % (11.5-14.5); Red Blood Cell (RBC) Count 3.25 mill/uL (4.20-5.40)
[2024-01-14 04:23] LABS: Magnesium 2.2 mg/dL (1.6-2.6)
[2024-01-14 04:25] LABS: ALT (SGPT) 161 U/L (8-55); AST (SGOT) 46 U/L (5-34); Albumin 2.7 g/dL (3.5-5.0); Alkaline Phosphatase 982 U/L (40-110); Anion Gap 21 mmol/L (10-20); BUN (Urea Nitrogen) 42 mg/dL (7.0-18.7); Bilirubin, Total 0.4 mg/dL (0.2-1.2); Calc. Creatinine Clearance 15 mL/min (70-130); Calcium 7.9 mg/dL (7.8-10.44); Carbon Dioxide 24 mmol/L (22-29); Chloride 93 mmol/L (98-107); Estimated GFR 13; Globulin 3.6 g/dL (2.4-3.5); Glucose 400 mg/dL (70-105); Potassium 4.4 mmol/L (3.5-5.1); Protein, Total 6.3 g/dL (6.0-8.3); Sodium 134 mmol/L (136-145)
[2024-01-14] MEDS: Insulin Glargine 30 UNITS/0.3 ML VIAL SC SCH (08:41)
[2024-01-14] MEDS: Escitalopram Oxalate 10 mg Tablet PO SCH (08:50)
[2024-01-14] MEDS: LOKELMA 10 GM PACKET PO SCH (10:17)
[2024-01-14] MEDS: Losartan 25 MG TAB PO SCH (10:17)
[2024-01-14] MEDS: Lorazepam 1 MG TAB PO PRN (16:37)
[2024-01-14] MEDS: Pregabalin 50 MG CAP PO PRN (16:37)
[2024-01-14] MEDS: Scopolamine 1 mg/72 hour Patch TD SCH (17:53)
[2024-01-15] MEDS: Linaclotide [Linzess] 290 MCG Cap PO SCH (08:00)
[2024-01-15] MEDS ORDERED: Heparin 10,000 UNITS/ 10 ML VIAL ONE (13:35)
[2024-01-16] MEDS: Midodrine HCl 5 MG TAB PO SCH (06:15)
[2024-01-16] MEDS ORDERED: Naloxone HCl 0.4 mg/ml Vial IV SCH (10:45)
[2024-01-16] MEDS: Insulin Regular, Human 100 UNIT/ML 10 ML VIAL IVP SCH (14:06)
[2024-01-16] MEDS: Insulin Regular 300 UNITS/3 ML VIAL IVP SCH (16:18)
[2024-01-16] MEDS: MAGIC MOUTH WASH W/NYSTATIN SUSP 10 ML UDCUP SSW SCH (20:37)
[2024-01-16] MEDS: HumaLOG 300 UNITS/3 ML VIAL SC SCH (23:49)
[2024-01-17 05:35] LABS: Anion Gap 20 mmol/L (10-20); BUN (Urea Nitrogen) 79 mg/dL (7.0-18.7); Calc. Creatinine Clearance 11 mL/min (70-130); Calcium 7.7 mg/dL (7.8-10.44); Carbon Dioxide 25 mmol/L (22-29); Chloride 98 mmol/L (98-107); Estimated GFR 8; Glucose 160 mg/dL (70-105); Potassium 5.1 mmol/L (3.5-5.1); Sodium 138 mmol/L (136-145)
[2024-01-18 06:45] LABS: Anion Gap 19 mmol/L (10-20); BUN (Urea Nitrogen) 56 mg/dL (7.0-18.7); Calc. Creatinine Clearance 20 mL/min (70-130); Calcium 8.2 mg/dL (7.8-10.44); Carbon Dioxide 26 mmol/L (22-29); Chloride 95 mmol/L (98-107); Estimated GFR 16; Glucose 104 mg/dL (70-105); Potassium 4.5 mmol/L (3.5-5.1); Sodium 135 mmol/L (136-145)
[2024-01-18 08:59] VITALS: BP 139/83; TEMP 98
== END 2024-01-18 19:40 | disposition home or self-care (01) | DRG 432 ==
LOC: ERS 19:44 → ERHOLD 01-13 06:21 → 2NO 01-13 14:51 → CCU 01-14 01:18 → OBSVTOIN 01-14 09:02 → 2SE 01-14 10:56 → 2NO 01-14 22:33 → MSONC 01-16 12:51
PROVIDERS: ADMIT Student in an Organized Health Care Education/Training Program; ATTEND Internal Medicine
PROC: 5A1D70Z Performance of Urinary Filtration, Intermittent, Less than 6 Hours Per Day (ICD-10-PCS; 2024-01-13)
PROC: 5A12012 Performance of Cardiac Output, Single, Manual (ICD-10-PCS; principal; 2024-01-14)
PROC: 4A133R1 Monitoring of Arterial Saturation, Peripheral, Percutaneous Approach (ICD-10-PCS; 2024-01-14)
DX: K74.60 Unspecified cirrhosis of liver (principal); G93.41 Metabolic encephalopathy; N18.6 End stage renal disease; I46.9 Cardiac arrest, cause unspecified; J96.21 Acute and chronic respiratory failure with hypoxia; R18.8 Other ascites; E87.20 Acidosis, unspecified; I12.0 Hypertensive chronic kidney disease with stage 5 chronic kidney disease or end stage renal disease; E10.40 Type 1 diabetes mellitus with diabetic neuropathy, unspecified; G40.909 Epilepsy, unspecified, not intractable, without status epilepticus; E87.5 Hyperkalemia; T45.0X5A Adverse effect of antiallergic and antiemetic drugs, initial encounter; T40.2X5A Adverse effect of other opioids, initial encounter; E10.22 Type 1 diabetes mellitus with diabetic chronic kidney disease; Z98.890 Other specified postprocedural states; Z86.16 Personal history of COVID-19; Z99.2 Dependence on renal dialysis; Z79.899 Other long term (current) drug therapy; Z88.8 Allergy status to other drugs, medicaments and biological substances; Z90.49 Acquired absence of other specified parts of digestive tract
CPT/HCPCS: 36415; 36416; 36600; 70450; 71045; 74176; 76705; 80048; 80053; 82010; 82140; 82805; 83605; 83690; 83735; 83880; 84484; 84703; 85025; 90935; 93005; 96372; 96374; 96375; 96376; 97139; G0257; G0378; J1200; J1644; J1815; J2272